=== PATIENT | male | born 1965 | race Two or more races ===

== ENCOUNTER 2020-08-05 10:14 | Emergency (ER) | payer OTHER ==
[2020-08-05 11:01] VITALS: BMI 49.0
[2020-08-05] MEDS ORDERED: ACETAMINOPHEN 325 MG TABLET (FP) PO ONE (12:07)
[2020-08-05] MEDS ORDERED: LIDOCAINE 5% TOPICAL PATCH TP ONE (12:07)
[2020-08-05] MEDS ORDERED: LIDOCAINE 5% TOPICAL PATCH ONE (12:19)
[2020-08-05] MEDS ORDERED: ACETAMINOPHEN 325 MG TABLET (FP) ONE (12:19)
[2020-08-05] MEDS ORDERED: KETOROLAC TROMETHAMINE 30 MG/1 ML VIAL IM ONE (12:28)
[2020-08-05] MEDS ORDERED: KETOROLAC TROMETHAMINE 30 MG/1 ML VIAL ONE (12:59)
[2020-08-05 13:55] VITALS: BP 146/86; PULSE 89; TEMP 98.9
[2020-08-05] MEDS ORDERED: LIDOCAINE PATCH REMOVAL MC ONE (22:00)
== END 2020-08-05 13:56 | disposition home or self-care (01) ==
LOC: JER 10:14
PROC: 3E0233Z Introduction of Anti-inflammatory into Muscle, Percutaneous Approach (ICD-10-PCS; principal; 2020-08-05)
DX: M54.31 Sciatica, right side (principal)
CPT/HCPCS: 99284-25